=== PATIENT | female | born 1980 | race Caucasian/White ===

== ENCOUNTER 2021-01-19 15:05 | Inpatient (IN) ==
[2021-01-19] MEDS ORDERED: OXYTOCIN 30 UNITS/500 ML BAG IV PRN ×2 (15:08→16:43)
[2021-01-19] MEDS ORDERED: LACTATED RINGER'S 1,000 ML IV PRN (15:08)
[2021-01-19 15:33] LABS: Hematocrit (blood only) 37.7 % (37-47); Hemoglobin 12.6 g/dL (12.0-16.0); Mean Corpuscular Hemoglobin 29.2 pg (25-34); Mean Corpuscular Hgb Conc 33.4 g/dL (32-36); Mean Corpuscular Volume 87.5 fL (80-100); Mean Platelet Volume 10.3 fL (7.4-10.4); Platelet Count 283 K/uL (130-400); RDW Coefficient of Variation 13.5 % (11.5-14.5); Red Blood Count 4.31 M/uL (4.2-5.4); White Blood Count 14.64 K/uL (4.8-10.8)
[2021-01-19] MEDS ORDERED: LIDOCAINE 1% LOCAL 20 ML VIAL ONE (16:01)
--- NOTE | 2021-01-19 16:19 | Communication Note ---
Date of Service: January 19, 2021 This patient was seen in concert with Dr. Medina and we discussed and agreed upon the history, physical, assessment, and plan. See attending's note for details. Resident Activity Tracking Resident Involvement: Resident Care Provided Care Provided: Adult [facility] Medicine and OB Delivery
[2021-01-19 16:32] LABS: Fibrinogen 431 mg/dl (184-400); INR 0.9 (0.9-1.1); Partial Thromboplastin Time 25.2 Seconds (21.0-31.0); Prothrombin Time 9.1 Seconds (9.0-12.0)
[2021-01-19] MEDS ORDERED: HYDROCORTISONE ACETATE 25 MG SUPP PR PRN (16:43)
[2021-01-19] MEDS ORDERED: DIPHTHERIA/TETANUS/PERTUSSIS 0.5 ML SYR/VIAL IM ONE (16:43)
[2021-01-19] MEDS ORDERED: IBUPROFEN 600 MG TAB PO PRN (16:43)
[2021-01-19] MEDS ORDERED: SUPERCREAM 0.870% 15 GM JAR EXT PRN (16:43)
[2021-01-19] MEDS ORDERED: ACETAMINOPHEN 325 MG TAB PO PRN (16:43)
[2021-01-19] MEDS ORDERED: bisacodyL 10 MG SUPP PR PRN (16:43)
[2021-01-19] MEDS ORDERED: BENZOCAINE 20% AER SPR 82.5 GM CAN EXT PRN (16:43)
[2021-01-19] MEDS: DOCUSATE SODIUM 100 MG CAP PO SCH (21:51)
[2021-01-20 06:45] LABS: Hematocrit (blood only) 38.6 % (37-47); Hemoglobin 12.7 g/dL (12.0-16.0); Mean Corpuscular Hemoglobin 28.4 pg (25-34); Mean Corpuscular Hgb Conc 32.9 g/dL (32-36); Mean Corpuscular Volume 86.4 fL (80-100); Mean Platelet Volume 10.4 fL (7.4-10.4); Platelet Count 241 K/uL (130-400); RDW Coefficient of Variation 13.6 % (11.5-14.5); RDW Standard Deviation 42.6 fL (36.4-46.3); Red Blood Count 4.47 M/uL (4.2-5.4); White Blood Count 17.08 K/uL (4.8-10.8)
--- NOTE | 2021-01-20 07:06 | Obstetrical Progress Note ---
Date of Service <Karlo Wagoner MD - Last Filed: 01/20/21 08:09> January 20, 2021 Assessment & Plan <Karlo Wagoner MD - Last Filed: 01/20/21 08:09> (1) (spontaneous vaginal delivery): Wendy is a 40 y/o female who is now PPD #1 following at 37- 6/7 weeks. - Feels well today. Eating well, voiding well, ambulating well. - Pain well controlled with ibuprofen 600mg Q4H PRN. - Routine ppd care -- OOB, ambulation, diet - Pending peds and patient's status throughout the day, can potentially leave after ~1600 (>24 hours at that time) - pt is g2 - After discharge will have [address] Medina Subjective <Karlo Wagoner MD - Last Filed: 01/20/21 08:09> Wendy is a 40 y/o female who is now PPD #1 following at 37-6/7 weeks. Reports feeling well overall this morning. Endorses mild abdominal cramping with pain well managed on analgesics. Voiding without difficulty. Tolerating meals well and able to ambulate some. Some persistent lochia with some improvement this morning. Breast feeding. Review of Systems Denies fever, chills, sweats Denies shortness of breath, difficulty breathing, chest pain, palpitations, chest pressure. Denies breast pain. Denies dysuria. Denies headache or changes in vision. Physical Exam <Karlo Wagoner MD - Last Filed: 01/20/21 08:09> General: Alert, oriented. No acute distress. Cardiac: Regular rate and rhythm, no murmurs/rubs/gallops. Respiratory: Clear to auscultation bilaterally a/p, no wheezes/rales/rhonchi. No increased work of breathing. Symmetrical chest rise. No respiratory distress. Abdomen: Soft, nontender, nondistended. Bowel sounds present. Uterus: Uterine fundus firm, palpable 1-2 cm below umbilicus. Lower Extremities: No lower extremity edema or swelling. No deep calf pain. Levi's negative bilaterally. Results & Data ([facility]) <Karlo Wagoner MD - Last Filed: 01/20/21 08:09> Vital Signs (Past 12 Hours) Vital Signs Temp Pulse Resp BP Pulse Ox 01/20/21 03:35 36.5 C 71 20 120/75 01/20/21 01:10 36.5 C 65 20 124/74 100 01/19/21 20:10 36.8 C 67 16 123/71 98 <Fish Medina MD - Last Filed: 01/21/21 12:50> Co-Signing Physician Notes Patient seen and evaluated and agree with the above findings and plan. Stable for discharge Resident Activity Tracking <Karlo Wagoner MD - Last Filed: 01/20/21 08:09> Resident Involvement: Resident Care Provided Care Provided: Adult Hospital Medicine and OB Delivery
[2021-01-20] MEDS ORDERED: PRENATAL VITAMIN 1 TAB PO SCH (08:00)
--- NOTE | 2021-01-20 08:05 | Delivery Summary ---
DATE OF PROCEDURE: 01/19/2021 PROCEDURE: Normal spontaneous vaginal delivery with second-degree perineal laceration repair. SURGEON: Fish Medina MD. VICE PRESIDENT FOR INSTRUCTION: Dr. Karlo Wagoner, PGY1. PREOPERATIVE DIAGNOSES: 1. Single intrauterine at 37 weeks 6 days gestational age. 2. Spontaneous active labor. 3. Vaginal bleeding. 4. Advanced maternal age. POSTOPERATIVE DIAGNOSES: 1. Single intrauterine at 37 weeks 6 days gestational age. 2. Spontaneous active labor. 3. Vaginal bleeding. 4. Advanced maternal age. 5. Status post procedure. ESTIMATED BLOOD LOSS: 300 mL. DRAINS: None. FLUIDS: Continuous lactated Ringer. URINE OUTPUT: Not measured. COMPLICATIONS: None. FINDINGS: Viable male with weight pending and Apgars of 8 and 9 at one and five minutes respe ctively. INDICATIONS: The patient presented in active labor at 37 weeks 6 days gestational age. At initial ev aluation, the patient was noted to have moderate vaginal bleeding, which was intermittent. After rup ture of membranes, bleeding was noted to be fairly minimal. heart rate tracing was category 1/ reactive throughout until decelerations were noted with pushing. Bleeding was minimal after delivery . At initial check, the patient was noted to be 8 cm dilated. She underwent artificial rupture of m embranes and progressed to complete-complete over several minutes, at which time she felt a strong ur ge to push and began pushing and achieved delivery within less than 20 minutes of pushing. DESCRIPTION OF PROCEDURE: The patient progressed to 10 cm dilated, 100% effaced, +1 station, felt a strong urge to push and pushed over intact perineum without anesthesia and delivered a viable male i nfant with weight and Apgars as noted above. Head of the delivered in CORNELL position, restitut ed to left transverse. No nuchal cord was noted. Body and shoulders quickly followed. was n oted to be vigorous soon after delivery and a 1 minute delayed cord clamping was initiated. The cord was then double clamped and cut. remained on maternal abdomen for several minutes, after wh ich it was taken up to the warmer for further evaluation and was noted to be quite vigorous. Cord se gment and cord blood were obtained. Attention was then turned to delivery of the placenta, which was delivered intact, 3-vessel cord, gentle cord traction. On inspection of the perineum, vagina, cervi x, there was noted to be a small second-degree perineal laceration, which was repaired with a traditi onal crown stitch using 3-0 Vicryl. Needle, sponge, and instrument counts were correct at the comple tion of the case. Both mother and stable in the immediate post-delivery period. Job ID: [id number]
[2021-01-20] MEDS: DOCUSATE SODIUM 100 MG CAP PO SCH (08:25)
[2021-01-20] MEDS ORDERED: NON-FORMULARY MEDICATION (Prenat.Vits,Cal,Min-Iron-Folic tablet) PO SCH (09:00)
[2021-01-20] MEDS ORDERED: bisacodyL 5 MG TABEC PO SCH (20:00)
== END 2021-01-20 18:30 | disposition home or self-care (01) | DRG 807 ==
LOC: 4S2 15:05 → 4S1 15:09 → 4S2 19:46